=== PATIENT | male | born 1965 | race Caucasian/White ===

== ENCOUNTER → 2017-08-05 | Outpatient (CLI) | payer SELFPAY ==
[~2017-08-05] MED LIST: ACHD5005 PO; AMOX-356 PO; CEPH500C PO; CIPR500T78 PO; HYDR-757 PO; HYDR1TAB8 PO; NAPR-1071 PO; PRD20T PO; SULF-222 PO; SULF1TAB35 PO; TRAM50TA2 PO
--- NOTE | 2017-08-05 10:54 | Diagnostic Imaging Report ---
INDICATION: Back pain with chronic low back pain and bilateral lower extremity pain Multiplanar MR imaging of the thoracic spine was performed. There is moderate right convexity curvature of the thoracic spine of approximately 45 degrees centered at the T6 level. There is leftward disc bulging along the inner margin of the convexity which does result in mild to moderate neuroforaminal stenosis on the left from T6-T9. No vertebral body anomaly is identified. There is no marrow signal abnormality to suggest fracture. No paraspinous lesion is detected. Thoracic spinal cord is unremarkable in caliber and demonstrates no suspicious signal abnormality. IMPRESSION: Approximately 45 degrees right convexity thoracic spinal curvature centered at T6 with leftward bulging of thoracic disc resulting in mild to moderate left neural foraminal stenoses from T6-T9. Otherwise, no acute abnormality or vertebral anomaly is identified. Dictated by: Dictated on workstation # [id number]
--- NOTE | 2017-08-05 12:03 | Diagnostic Imaging Report ---
PROCEDURE: MRI lumbar spine. TECHNIQUE: Multiplanar, multisequence MRI of the lumbar spine was performed without contrast. INDICATION: Scoliosis. Chronic low back and bilateral lower extremity pain. COMPARISON: Lumbar spine radiographs 11/26/2015. FINDINGS: There are five lumbar type vertebral bodies. Moderate left apex lumbar curvature centered at L2-L3. Grade 1 anterolisthesis of L4 on L5. Normal bone marrow signal. No abnormal signal in the conus which terminates at L1. Normal morphology of the cauda equina. Intervertebral discs are well-preserved at L1-L4. No spinal canal or lateral recess narrowing at these levels. Facet arthropathy and the lateral curvature does result in moderate to advanced left neural foraminal narrowing at L3-L4. At L4-L5, the anterolisthesis, ligamentous hypertrophy and facet arthropathy results in moderate to advanced spinal canal and bilateral lateral recess narrowing. There is also advanced bilateral neural foraminal narrowing. There is increased fluid within the facet joints at this level. At L5-S1, broad-based disc bulge results in only mild spinal canal and bilateral lateral recess narrowing. Disc space height loss and facet arthropathy results in moderate to advanced bilateral neural foraminal narrowing. The visualized paravertebral soft tissues are unremarkable. IMPRESSION: 1. Spondylotic changes result in moderate to advanced spinal canal narrowing at L4-L5. No other high-grade spinal canal narrowing in the lumbar spine. 2. Scoliosis and facet arthropathy result in scattered moderate to advanced neural foraminal narrowing detailed above. 3. Increased fluid within the facet joints at L4-L5 may be an additional local pain generator. Dictated by: Dictated on workstation # [id number]
== END ==
LOC: RAD 09:22
PROVIDERS: ATTEND Nurse Practitioner Family
DX: M48.061 Spinal stenosis, lumbar region without neurogenic claudication (principal); M48.04 Spinal stenosis, thoracic region; M41.86 Other forms of scoliosis, lumbar region; M46.86 Other specified inflammatory spondylopathies, lumbar region; M43.16 Spondylolisthesis, lumbar region; M51.24 Other intervertebral disc displacement, thoracic region; M51.37 Other intervertebral disc degeneration, lumbosacral region
CPT/HCPCS: 72146; 72148

== ENCOUNTER 2017-11-24 17:45 | Emergency (ER) | payer SELFPAY ==
[~2017-11-24] VITALS: Ht 167.6 cm; Wt 77.1 kg
[2017-11-24] MEDS ORDERED: KETOROLAC 30 MG/ML VIAL IM ONE (20:00)
[2017-11-24] MEDS ORDERED: RX-NEO/POLYB/HC OTIC (CORTISPORIN) SUSP 10 ML BTL OT STA (20:00)
[2017-11-24] MEDS ORDERED: AMOXICILLIN 500 MG (POLYMOX) CAP PO STA (20:00)
[2017-11-24] MEDS ORDERED: AMOX500T2 PO (20:06)
--- NOTE | 2017-11-24 20:06 | ED EENT ---
History of Present Illness General Chief Complaint: Ear Problems Stated Complaint: R EAR PAIN Nursing Triage Note: States that rt ear has been draining red, muffled sound, and pain for the last week. No known injury Source: patient Exam Limitations: no limitations History of Present Illness Date Seen by Provider: Nov 24, 2017 Time Seen by Provider: 19:50 Initial Comments This 52-year-old gentleman presents to the emergency room with complaints of right ear pain. It is throbbing. It feels plugged and has been draining 1 week. He denies any fever. His primary care provider is Edwin Vance at [facility]. He has a history of tympanic membrane repair as a child. Allergies and Home Medications Allergies Coded Allergies: No Known Drug Allergies (Unverified , 11/24/17) Home Medications Amoxicillin 500 Mg Tablet, 1,000 MG PO BID Prescribed by: REBEKA BARCENAS on 11/24/172005 Cephalexin Monohydrate 500 Mg Capsule, 1 EACH PO BID Prescribed by: XIN PARK on 08/30/141829 Ciprofloxacin HCl 500 Mg Tablet, 500 MG PO BID Prescribed by: XIN PARK on 08/30/141829 Hydrocodone Bit/Acetaminophen 1 Each Tablet, 1 EA PO Q6H PRN for MILD PAIN Prescribed by: XIN PARK on 08/30/141829 Hydrocodone Bit/Acetaminophen 1 Each Tablet, 1 EACH PO Q4H PRN for PAIN Prescribed by: LUIS FRANCIS on 03/13/151716 Naproxen 500 Mg Tablet, 500 MG PO Q12H Prescribed by: LUIS FRANCIS on 04/04/15 150 Prednisone 20 Mg Tab, 40 MG PO DAILY Prescribed by: LUIS FRANCIS on 04/04/15 150 Sulfamethoxazole/Trimethoprim 1 Each Tablet, 1 EACH PO BID Prescribed by: LUIS FRANCIS on 03/13/151716 Tramadol HCl 50 Mg Tablet, 50 MG PO Q4H PRN for PAIN Prescribed by: LUIS FRANCIS on 04/04/15 150 Patient Home Medication List Home Medication List Reviewed: Yes Review of Systems Constitutional: no symptoms reported Eyes: No Symptoms Reported Ears: See HPI Nose: no symptoms reported Mouth: no symptoms reported Throat: no symptoms reported Respiratory: no symptoms reported Cardiovascular: no symptoms reported Gastrointestinal: no symptoms reported Musculoskeletal: no symptoms reported Skin: no symptoms reported Neurological: No Symptoms Reported Past Nampsmr-Cihlit-Pziwzm Hx Patient Social History Alcohol Use: Rarely Uses Recreational Drug Use: Yes Smoking Status: Current Everyday Smoker 2nd Hand Smoke Exposure: No Recent Foreign Travel: No Contact w/Someone Who Travel: No Recent Infectious Disease Expo: No Immunizations Up To Date Tetanus Booster (TDap): Less than 5yrs Past Medical History Surgeries: Yes Ear Surgery, Orthopedic Respiratory: No Cardiac: No Neurological: No Genitourinary: No Gastrointestinal: No Musculoskeletal: Yes Scoliosis, Chronic Back Pain Endocrine: No HEENT: No Cancer: No Psychosocial: No Integumentary: No Blood Disorders: No Family Medical History No Pertinent Family Hx Physical Exam Vital Signs Vital Signs - First Documented 11/24/17 11/24/17 18:39 20:24 Temp 97.8 Pulse 76 Resp 14 B/P (MAP) 131/76 (94) Pulse Ox 95 O2 Delivery Room Air General Appearance: WD/WN, no apparent distress Ears: right ear other (There is purulent drainage in the ear canal and loss of normal landmarks of the tympanic membrane. Ear is painful. Findings suspicious for perforation. There appears to be purulent effusion behind the tympanic membrane. 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 He was dispensed a Cortisporin take-home bottle as well as. Toradol was given for management of pain. He was strongly advised to follow-up with the ENT specialist. Departure Impression Primary Impression: Otitis media of right ear with rupture of tympanic membrane Additional Impression: Left serous otitis media Qualified Codes: H65.02 - Acute serous otitis media, left ear Disposition: HOME, SELF-CARE Condition: Improved Departure-Patient Inst. Decision time for Depature: 20:00 Referrals: [facility] JONEL (PCP) Primary Care Physician EDWIN VANCE (Family) Primary Care Physician Patient Instructions: Ear Infections (Otitis Media) (DC), How to Use Ear Drops Add. Discharge Instructions: Complete the entire course of antibiotics as prescribed. Please call the clinic tomorrow to schedule an appointment for next week to have your ears reexamined. For pain you may take ibuprofen up to 600 mg every 6 hours as needed. Add Tylenol (acetaminophen) up to 1000 mg every 6 hours as needed for additional pain relief. Return to care if symptoms are worsening. It may take several days or weeks to clear up the infection. Referral to an ear, nose and throat specialist may be necessary at your follow-up appointment. All discharge instructions reviewed with patient and/or family. Voiced understanding. Scripts Amoxicillin (Amoxicillin) 500 Mg Tablet 1000 MG PO BID, #40 TAB Prov: REBEKA LLOYD MD 11/24/17 Copy Copies To 1: SAM VICK JOSHUA T MD Nov 24, 2017 20:06
--- OUTSIDE RECORDS SUMMARY | 2017-11-24 20:12 | XMS REPORT ---
Author Author BJ VANCE Organization [employer] Address Unknown Phone Unavailable Care Team Providers Care Real Estate Acquisition Analyst Name Role Phone BJ VANCE CP Unavailable Allergies No Known Allergies Problems Problem Type Condition Code Onset Dates Condition Status Problem Scoliosis, unspecified scoliosis type, unspecified spinal region M41.9 Active Problem Chronic right-sided low back pain with right-sided sciatica M54.41 Active Problem Dysthymia F34.1 Active Assessment Scoliosis, unspecified scoliosis type, unspecified spinal region M41.9 Active Medications Medication Code System Code Instructions Start Date End Date Status Dosage Fluoxetine HCl [facility][NOTE 3] [address]-86 20 mg Orally Once a day Feb 18, 2016 1 capsule in the morning Baclofen [facility][NOTE 3] [address]-10 10 mg Orally 2 times a day Feb 18, 2016 1 tablet with food or milk Diclofenac Potassium [facility][NOTE 3] [address]-91 50 mg Orally 3 times a day Feb 18, 2016 1 tablet Results No Known Results Summary Purpose [employer] Submission
--- OUTSIDE RECORDS SUMMARY | 2017-11-24 20:12 | XMS REPORT ---
Author Author BJ VANCE [facility] Address [address] [place] [address] Care Team Providers Care Area Director Of Home Health Sales Name Role Phone BJ VANCE Unavailable PROBLEMS Type Condition ICD9-CM Code TIS63-DE Code Onset Dates Condition Status SNOMED Code Problem Dysthymia F34.1 Active 55038571 Problem Scoliosis, unspecified scoliosis type, unspecified spinal region M41.9 Active 074700293 Problem Chronic right-sided low back pain with right-sided sciatica M54.41 Active 251209607 ALLERGIES No Information SOCIAL HISTORY Never Assessed PLAN OF CARE VITAL SIGNS MEDICATIONS Unknown Medications RESULTS No Results PROCEDURES No Known procedures IMMUNIZATIONS No Known Immunizations MEDICAL (GENERAL) HISTORY Type Description Date Medical History scoliosis Medical History Dysthymia Medical History Chronic right-sided low back pain with right-sided sciatica
--- OUTSIDE RECORDS SUMMARY | 2017-11-24 20:12 | XMS REPORT ---
Author Author BJ VANCE [facility] Address [address] [place] [address] Care Team Providers Care Paper Winder Name Role Phone BJ VANCE Unavailable PROBLEMS Type Condition ICD9-CM Code APO98-IP Code Onset Dates Condition Status SNOMED Code Problem DDD (degenerative disc disease), lumbosacral M51.37 Active 60766337 Problem Dysthymia F34.1 Active 79342066 Problem Scoliosis, unspecified scoliosis type, unspecified spinal region M41.9 Active 695038552 Problem Chronic right-sided low back pain with right-sided sciatica M54.41 Active 849183453 ALLERGIES No Information ENCOUNTERS Encounter Location Date Diagnosis [place] [id number] [place] [address] [id number] October, DDD (degenerative disc disease), lumbosacral M51.37 and Chronic right- sided low back pain with right-sided sciatica M54.[address] [id number] October, [address] [id number] Sep, DDD (degenerative disc disease), lumbosacral M51.37 [place] [id number] [place] [address] [id number] Aug, DDD (degenerative disc disease), lumbosacral M51.37 [address] [place] [address] [id number] Aug, DDD (degenerative disc disease), lumbosacral M51.37 [facility] [address] [address] Jul, 2017 DDD (degenerative disc disease), lumbosacral M51.37 and Scoliosis, unspecified scoliosis type, unspecified spinal region M41.[address] [id number] [id number] Jul, DDD (degenerative disc disease), lumbosacral M51.37 [facility] [place] [id number] [place] [address] [id number] Jun, DDD (degenerative disc disease), lumbosacral M51.37 [facility] [place] [id number] [place] [address] [id number] Apr, DDD (degenerative disc disease), lumbosacral M51.37 [facility] [place] [id number], [place] [id number] Apr, DDD (degenerative disc disease), lumbosacral M51.37 and Acute pain of right shoulder M25.511 [facility] [address] [facility] [id number] [id number] Mar, Chronic right-sided low back pain with right-sided sciatica M54.41 [facility] [address] [id number] [id number] Mar, Scoliosis, unspecified scoliosis type, unspecified spinal region M41.9 and Chronic right-sided low back pain with right-sided sciatica M54.41 [facility] [id number] [place] [address] [id number] Mar, Scoliosis, unspecified scoliosis type, unspecified spinal region M41.9 and Chronic right-sided low back pain with right-sided sciatica M54.41 [facility] [id number], [place] [id number] Feb, Chronic right-sided low back pain with right-sided sciatica M54.41 [facility] [address] [facility] [id number], [place] [id number] Feb, Chronic right-sided low back pain with right-sided sciatica M54.41 [facility] [id number] [place] [address] [id number] Jan, Chronic right-sided low back pain with right-sided sciatica M54.41 [facility] [id number], [place] [id number] Dec, Chronic right-sided low back pain with right-sided sciatica M54.41 [facility] [address] [id number] [place] [id number] Dec, Chronic right-sided low back pain with right-sided sciatica M54.41 [facility] [address] [id number] [place] [id number] Nov, Chronic right-sided low back pain with right-sided sciatica M54.41 [facility] [address] [id number] [place] [id number] October, Chronic right-sided low back pain with right-sided sciatica M54.41 [facility] [address] [id number] [place] [id number] October, [facility] [address] [id number] [place] [id number] Sep, Chronic right-sided low back pain with right-sided sciatica M54.41 [facility] [id number] [place] [address] [id number] Aug, Chronic right-sided low back pain with right-sided sciatica M54.41 [facility] [address] [id number] [place] [id number] May, Scoliosis, unspecified scoliosis type, unspecified spinal region M41.9 [facility] [address] [id number], [place] [id number] Apr, [facility] [id number] [place] [address] [id number] Mar, Chronic right-sided low back pain with right-sided sciatica M54.41 [facility] [address] [id number], [place] [id number] Mar, Scoliosis, unspecified scoliosis type, unspecified spinal region M41.9 [facility] [address] [id number] [place] [id number] Feb, Chronic right-sided low back pain with right-sided sciatica M54.41 ; Scoliosis, unspecified scoliosis type, unspecified spinal region M41.9 and Dysthymia F34.1 [facility] [address] [id number] [place] [id number] Sep, Scoliosis, unspecified scoliosis type, unspecified spinal region M41.9 and Chronic right-sided low back pain with right-sided sciatica M54.41 [facility] [address] [facility] [id number] [place] [address] Nov, [facility] [address] [place] [id number] [address] Nov, [place] [address] [address] Nov, [place] [address] [facility] [id number] [place] [address] Nov, IMMUNIZATIONS No Known Immunizations SOCIAL HISTORY Never Assessed REASON FOR VISIT Controlled Med Refill PLAN OF CARE VITAL SIGNS MEDICATIONS Medication Instructions Dosage Frequency Start Date End Date Duration Status Hydrocodone-Acetaminophen 5-325 MG Orally 3 times a day 1 tablet as needed for pain 8h Apr, 0 days Active RESULTS No Results PROCEDURES No Known procedures INSTRUCTIONS MEDICATIONS ADMINISTERED No Known Medications MEDICAL (GENERAL) HISTORY Type Description Date Medical History scoliosis Medical History Dysthymia Medical History Chronic right-sided low back pain with right-sided sciatica
--- OUTSIDE RECORDS SUMMARY | 2017-11-24 20:12 | XMS REPORT ---
Author Author BJ VANCE [facility] Address [address] [place] [address] Care Team Providers Care Hide Inspector And Sorter Name Role Phone BJ VANCE Unavailable PROBLEMS Type Condition ICD9-CM Code OCN13-KB Code Onset Dates Condition Status SNOMED Code Problem DDD (degenerative disc disease), lumbosacral M51.37 Active 56851091 Problem Dysthymia F34.1 Active 27729425 Problem Scoliosis, unspecified scoliosis type, unspecified spinal region M41.9 Active 780755841 Problem Chronic right-sided low back pain with right-sided sciatica M54.41 Active 724916366 ALLERGIES No Known Allergies ENCOUNTERS Encounter Location Date Diagnosis [place] [id number] [place] [address] [id number] Aug, DDD (degenerative disc disease), lumbosacral M51.37 [place] [id number] [place] [address] [id number] Aug, DDD (degenerative disc disease), lumbosacral M51.37 [facility] [address] [address] Jul, DDD (degenerative disc disease), lumbosacral M51.37 and Scoliosis, unspecified scoliosis type, unspecified spinal region M41.[address] [place] [address] [id number] Jul, DDD (degenerative disc disease), lumbosacral M51.37 [place] [id number] [place] [address] [id number] Jun, DDD (degenerative disc disease), lumbosacral M51.37 [place] [id number] [place] [address] [id number] Apr, DDD (degenerative disc disease), lumbosacral M51.37 [place] [id number] [id number] Apr, DDD (degenerative disc disease), lumbosacral M51.37 and Acute pain of right shoulder M25.511 [facility] [place] [address] [id number][place] [id number] Mar, Chronic right-sided low back pain with right-sided sciatica M54.41 [facility] [address] [id number][place] [id number] Mar, Scoliosis, unspecified scoliosis type, unspecified spinal region M41.9 and Chronic right-sided low back pain with right-sided sciatica M54.41 [facility] [id number] [place] [address] [id number] Mar, Scoliosis, unspecified scoliosis type, unspecified spinal region M41.9 and Chronic right-sided low back pain with right-sided sciatica M54.41 [facility] [id number] [place] [address] [id number] Feb, Chronic right-sided low back pain with right-sided sciatica M54.41 [facility] [id number] [place] [address] [id number] Feb, Chronic right-sided low back pain with right-sided sciatica M54.41 [facility] [id number] [place] [address] [id number] Jan, Chronic right-sided low back pain with right-sided sciatica M54.41 [facility] [id number] [place] [address] [id number] Dec, Chronic right-sided low back pain with right-sided sciatica M54.41 [facility] [address] [id number], [place] [id number] Dec, Chronic right-sided low back pain with right-sided sciatica M54.41 [facility] [id number] [place] [address] [id number] Nov, Chronic right-sided low back pain with right-sided sciatica M54.41 [facility] [id number] [place] [address] [id number] October, Chronic right-sided low back pain with right-sided sciatica M54.41 [facility] [address] [id number][place] [id number] October, [facility] [id number] [place] [address] [id number] Sep, Chronic right-sided low back pain with right-sided sciatica M54.41 [facility] [place] [id number] [place] [address] [id number] Aug, Chronic right-sided low back pain with right-sided sciatica M54.41 [facility] [place] [address] [id number], [place] [id number] May, Scoliosis, unspecified scoliosis type, unspecified spinal region M41.9 [facility] [place] [id number] [place] [address] [id number] Apr, [facility] [place] [id number] [place] [address] [id number] Mar, Chronic right-sided low back pain with right-sided sciatica M54.41 [facility] [place] [address] [id number], [place] [id number] Mar, Scoliosis, unspecified scoliosis type, unspecified spinal region M41.9 [facility] [place] [id number] [place] [address] [id number] Feb, Chronic right-sided low back pain with right-sided sciatica M54.41 ; Scoliosis, unspecified scoliosis type, unspecified spinal region M41.9 and Dysthymia F34.1 [facility] [id number], [place] [id number] Sep, Scoliosis, unspecified scoliosis type, unspecified spinal region M41.9 and Chronic right-sided low back pain with right-sided sciatica M54.41 [facility] [address] [id number] [place] [phone] Nov, [facility] [id number] [place] [address] Nov, [facility] [address] [place] [id number] [place] [address], [place] [address] Nov, [facility] [address] [facility] [id number] [place] [address] Nov, IMMUNIZATIONS No Known Immunizations SOCIAL HISTORY Never Assessed REASON FOR VISIT 2 month follow up on chronic pain management--doing about the same. [place] PLAN OF CARE Activity Details Follow Up 3 Months Reason:back pain VITAL SIGNS Height 65 in 2016-12-08 Weight 187 lbs 2016-12-08 Temperature 97.2 degrees Fahrenheit 2016-12-08 Heart Rate 72 bpm 2016-12-08 Respiratory Rate 16 2016-12-08 BMI 31.12 kg/m2 2016-12-08 Blood pressure systolic 110 mmHg 2016-12-08 Blood pressure diastolic 68 mmHg 2016-12-08 MEDICATIONS Medication Instructions Dosage Frequency Start Date End Date Duration Status Baclofen 10 mg Orally 2 times a day 1 tablet with food or milk 12h Feb, Active Gabapentin 600 MG Orally 2 times a day 1 capsule 12h Feb, Active Diclofenac Potassium 50 mg Orally 3 times a day 1 tablet 8h Feb, Active Hydrocodone-Acetaminophen 5-325 MG Orally twice a day 1 tablet as needed for pain 12h Aug, Nov, 0 days Active RESULTS No Results PROCEDURES No Known procedures INSTRUCTIONS MEDICATIONS ADMINISTERED No Known Medications MEDICAL (GENERAL) HISTORY Type Description Date Medical History scoliosis Medical History Dysthymia Medical History Chronic right-sided low back pain with right-sided sciatica
--- OUTSIDE RECORDS SUMMARY | 2017-11-24 20:12 | XMS REPORT ---
Author Author JOSH MACHADO Organization [facility] Address [address] [place] [address] Care Team Providers Care Supervisor Line Department Name Role Phone JOSH MACHADO Unavailable PROBLEMS Type Condition ICD9-CM Code [id number] Code Onset Dates Condition Status SNOMED Code Problem DDD (degenerative disc disease), lumbosacral M51.37 Active 22947715 Problem Dysthymia F34.1 Active 20133384 Problem Scoliosis, unspecified scoliosis type, unspecified spinal region M41.9 Active 930648075 Problem Chronic right-sided low back pain with right-sided sciatica M54.41 Active 305913908 ALLERGIES No Information ENCOUNTERS Encounter Location Date Diagnosis [facility] [id number] [place] [address] [id number] Sep, DDD (degenerative disc disease), lumbosacral M51.37 [id number] [place] [address] [id number] Aug, DDD (degenerative disc disease), lumbosacral M51.37 [address] [place] [address] [id number] Aug, DDD (degenerative disc disease), lumbosacral M51.37 [facility] [address] [place] [address] [id number]- [address] Jul, DDD (degenerative disc disease), lumbosacral M51.37 and Scoliosis, unspecified scoliosis type, unspecified spinal region M41.9 [id number] [place] [address] [id number] Jul, DDD (degenerative disc disease), lumbosacral M51.37 [address] [place] [address] [id number] Jun, DDD (degenerative disc disease), lumbosacral M51.37 [facility] [place] [address] [id number] [phone] Apr, DDD (degenerative disc disease), lumbosacral M51.37 [facility] [place] [id number] [place] [address] [id number] Apr, DDD (degenerative disc disease), lumbosacral M51.37 and Acute pain of right shoulder M25.511 [facility] [place] [id number] [place] [address] [id number] Mar, Chronic right-sided low back pain with right-sided sciatica M54.41 [facility] [address] [id number][place] [id number] Mar, Scoliosis, unspecified scoliosis type, unspecified spinal region M41.9 and Chronic right-sided low back pain with right-sided sciatica M54.41 [facility] [place] [id number] [place] [address] [id number] Mar, Scoliosis, unspecified scoliosis type, unspecified spinal region M41.9 and Chronic right-sided low back pain with right-sided sciatica M54.41 [facility] [place] [address] [id number] [place] [address] [id number] Feb, Chronic right-sided low back pain with right-sided sciatica M54.41 [facility] [place] [id number] [place] [address] [id number] Feb, Chronic right-sided low back pain with right-sided sciatica M54.41 [facility] [place] [id number] [place] [address] [id number] Jan, Chronic right-sided low back pain with right-sided sciatica M54.41 [facility] [place] [id number] [place] [address] [id number] Dec, Chronic right-sided low back pain with right-sided sciatica M54.41 [facility] [place] [id number] [place] [address] [id number] Dec, Chronic right-sided low back pain with right-sided sciatica M54.41 [facility] [place] [address] [id number][place] [id number] Nov, Chronic right-sided low back pain with right-sided sciatica M54.41 [facility] [address] [id number][place] [phone] October, Chronic right-sided low back pain with right-sided sciatica M54.41 [facility] [address] [id number], [place] [phone] October, [facility] [id number] [place] [address] [id number] Sep, Chronic right-sided low back pain with right-sided sciatica M54.41 [facility] [place] [id number] [place] [address] [id number] Aug, Chronic right-sided low back pain with right-sided sciatica M54.41 [facility] [place] [id number] [place] [address] [id number] May, Scoliosis, unspecified scoliosis type, unspecified spinal region M41.9 [facility] [place] [id number], [place] [id number] Apr, [facility] [place] [id number] [place] [address] [id number] Mar, Chronic right-sided low back pain with right-sided sciatica M54.41 [facility] [place] [id number] [place] [address] [id number] Mar, Scoliosis, unspecified scoliosis type, unspecified spinal region M41.9 [facility] [place] [id number][place] [id number] Feb, Chronic right-sided low back pain with right-sided sciatica M54.41 ; Scoliosis, unspecified scoliosis type, unspecified spinal region M41.9 and Dysthymia F34.1 [facility] [place] [id number] [place] [address] [id number] Sep, Scoliosis, unspecified scoliosis type, unspecified spinal region M41.9 and Chronic right-sided low back pain with right-sided sciatica M54.41 [facility] [address] [phone] Nov, [facility] [address] [facility] [id number] [place] [address] Nov, [facility] [address] [facility] [id number] [place] [address] Nov, [facility] [address] [facility] [id number] [place] [address] Nov, IMMUNIZATIONS No Known Immunizations SOCIAL HISTORY Never Assessed REASON FOR VISIT Reprint of script PLAN OF CARE VITAL SIGNS MEDICATIONS Medication Instructions Dosage Frequency Start Date End Date Duration Status Hydrocodone-Acetaminophen 5-325 MG Orally 3 times a day 1 tablet as needed for pain 8h Aug, 30 days Active RESULTS No Results PROCEDURES No Known procedures INSTRUCTIONS MEDICATIONS ADMINISTERED No Known Medications MEDICAL (GENERAL) HISTORY Type Description Date Medical History scoliosis Medical History Dysthymia Medical History Chronic right-sided low back pain with right-sided sciatica
--- OUTSIDE RECORDS SUMMARY | 2017-11-24 20:12 | XMS REPORT ---
Author Author BJ VANCE [facility] Address [address] [place] [address] Care Team Providers Care Wrapping Clerk Name Role Phone BJ VANCE Unavailable PROBLEMS Type Condition ICD9-CM Code EOG87-VR Code Onset Dates Condition Status SNOMED Code Problem Dysthymia F34.1 Active 34799895 Problem Scoliosis, unspecified scoliosis type, unspecified spinal region M41.9 Active 843900918 Problem Chronic right-sided low back pain with right-sided sciatica M54.41 Active 112353767 Assessment Chronic right-sided low back pain with right-sided sciatica M54.41 Feb, Active 54173216 ALLERGIES Substance Reaction Event Type Date Status N.K.D.A. Unknown Non Drug Allergy Feb, Unknown SOCIAL HISTORY No smoking Hx information available PLAN OF CARE VITAL SIGNS Height 65 in 2016-02-18 Weight 180 lbs 2016-02-18 Heart Rate 72 bpm 2016-02-18 Respiratory Rate 18 2016-02-18 BMI 29.95 kg/m2 2016-02-18 Blood pressure systolic 128 mmHg 2016-02-18 Blood pressure diastolic 70 mmHg 2016-02-18 MEDICATIONS Medication Instructions Dosage Frequency Start Date End Date Duration Status Baclofen 10 mg Orally 2 times a day 1 tablet with food or milk 12h Feb, Active Gabapentin 300 MG Orally 1 capsule at bedtime for 5 days then increase to 1 capsule BID, then increase to 1 capsule TID 1 capsule Feb, Active Diclofenac Potassium 50 mg Orally 3 times a day 1 tablet 8h Feb, Active Fluoxetine HCl 20 mg Orally Once a day 1 capsule in the morning 24h Feb Active RESULTS No Results PROCEDURES Procedure Date Ordered Related Diagnosis Body Site Office Visit, Est Pt., Level 3 Feb 18, 2016 IMMUNIZATIONS No Known Immunizations
--- OUTSIDE RECORDS SUMMARY | 2017-11-24 20:12 | XMS REPORT ---
Author Author BJ VANCE [facility] Address [address] [place] [address] Care Team Providers Care Shellfish Checker Name Role Phone BJ VANCE Unavailable PROBLEMS Type Condition ICD9-CM Code UFC87-OB Code Onset Dates Condition Status SNOMED Code Problem DDD (degenerative disc disease), lumbosacral M51.37 Active 23033262 Problem Dysthymia F34.1 Active 19090410 Problem Scoliosis, unspecified scoliosis type, unspecified spinal region M41.9 Active 838950879 Problem Chronic right-sided low back pain with right-sided sciatica M54.41 Active 509118635 ALLERGIES No Information ENCOUNTERS Encounter Location Date Diagnosis [id number] [place] [address] [id number] Sep, DDD (degenerative disc disease), lumbosacral M51.37 [id number] [place] [address] [id number] Aug, DDD (degenerative disc disease), lumbosacral M51.37 [id number] [place] [address] [id number] Aug, DDD (degenerative disc disease), lumbosacral M51.37 [facility] [id number] [place] [address] [id number] [address] Jul, DDD (degenerative disc disease), lumbosacral M51.37 and Scoliosis, unspecified scoliosis type, unspecified spinal region M41.[address] [id number] Jul, DDD (degenerative disc disease), lumbosacral M51.37 [address] [place] [address] [id number] Jun, DDD (degenerative disc disease), lumbosacral M51.37 [address] [id number] Apr, DDD (degenerative disc disease), lumbosacral M51.37 [facility] [place] [id number] [place] [address] [id number] Apr, DDD (degenerative disc disease), lumbosacral M51.37 and Acute pain of right shoulder M25.511 [facility] [address] [id number] [place] [id number] Mar, Chronic right-sided low back pain with right-sided sciatica M54.41 [facility] [address] [facility] [id number][place] [id number] Mar, Scoliosis, unspecified scoliosis type, unspecified spinal region M41.9 and Chronic right-sided low back pain with right-sided sciatica M54.41 [facility] [address] [id number] [place] [id number] Mar, Scoliosis, unspecified scoliosis type, unspecified spinal region M41.9 and Chronic right-sided low back pain with right-sided sciatica M54.41 [facility] [id number] [place] [address] [id number] Feb, Chronic right-sided low back pain with right-sided sciatica M54.41 [facility] [id number] [place] [address] [id number] Feb, Chronic right-sided low back pain with right-sided sciatica M54.41 [facility] [id number] [place] [address] [id number] Jan, Chronic right-sided low back pain with right-sided sciatica M54.41 [facility] [address] [id number] [place] [id number] Dec, Chronic right-sided low back pain with right-sided sciatica M54.41 [facility] [id number] [place] [address] [id number] Dec, Chronic right-sided low back pain with right-sided sciatica M54.41 [facility] [id number] [place] [address] [id number] Nov, Chronic right-sided low back pain with right-sided sciatica M54.41 [facility] [address] [id number] [place] [id number] October, Chronic right-sided low back pain with right-sided sciatica M54.41 [facility] [address] [id number] [place] [id number] October, [facility] [address] [id number] [place] [phone] Sep, Chronic right-sided low back pain with right-sided sciatica M54.41 [facility] [id number] [place] [address] [id number] Aug, Chronic right-sided low back pain with right-sided sciatica M54.41 [facility] [id number] [place] [address] [id number] May, Scoliosis, unspecified scoliosis type, unspecified spinal region M41.9 [facility] [place] [id number] [place] [address] [id number] Apr, [facility] [id number] [place] [address] [id number] Mar, Chronic right-sided low back pain with right-sided sciatica M54.41 [facility] [id number] [place] [address] [id number] Mar, Scoliosis, unspecified scoliosis type, unspecified spinal region M41.9 [facility] [place] [id number] [place] [address] [id number] Feb, Chronic right-sided low back pain with right-sided sciatica M54.41 ; Scoliosis, unspecified scoliosis type, unspecified spinal region M41.9 and Dysthymia F34.1 [facility] [place] [id number] [place] [address] [id number] Sep, Scoliosis, unspecified scoliosis type, unspecified spinal region M41.9 and Chronic right-sided low back pain with right-sided sciatica M54.41 [facility] [address]65100[place] [address] Nov, [facility] [address] [facility] [id number] [place] [address] Nov, [facility] [address] [facility] [id number] [place] [address] Nov, [facility] [address] [facility] [id number] [place] [address] Nov, IMMUNIZATIONS No Known Immunizations SOCIAL HISTORY Never Assessed REASON FOR VISIT RX-Hydrocodone refill PLAN OF CARE VITAL SIGNS MEDICATIONS Medication Instructions Dosage Frequency Start Date End Date Duration Status Hydrocodone-Acetaminophen 5-325 MG Orally 3 times a day 1 tablet as needed for pain 8h Aug, Active RESULTS No Results PROCEDURES No Known procedures INSTRUCTIONS MEDICATIONS ADMINISTERED No Known Medications MEDICAL (GENERAL) HISTORY Type Description Date Medical History scoliosis Medical History Dysthymia Medical History Chronic right-sided low back pain with right-sided sciatica
--- OUTSIDE RECORDS SUMMARY | 2017-11-24 20:13 | XMS REPORT | Continuity of Care Document ---
Author Author [facility] Address Unknown Phone Unavailable Allergies Active Description Code Type Severity Reaction Onset Reported/Identified Relationship to Patient Clinical Status Yes No Known Drug Allergies [id number] Drug Allergy Unknown N/A 12/22/2013 Medications There is no data. Problems Date Dx Coded Attending Type Code Diagnosis Diagnosed By 12/22/2013 XIN PARK APRN Ot 883.0 OPEN WOUND OF FINGER 12/22/2013 XIN PARK APRN Ot E920.8 ACC-CUTTING INSTRUM NEC 12/24/2013 XIN PARK APRN Ot 729.99 OTHER DISORDERS OF SOFT TISSUE 01/05/2014 PAUL COOPER DO Ot V58.32 ENCOUNTER FOR REMOVAL OF SUTURES 08/30/2014 XIN PARK APRN Ot 891.0 OPEN WND KNEE/LEG/ANKLE 08/30/2014 XIN PARK APRN Ot E000.8 OTHER EXTERNAL CAUSE STATUS 08/30/2014 XIN PARK APRN Ot E919.4 WOODWORKING MACHINE ACC 03/07/2015 LOLI BAUTISTA DO Ot 873.0 OPEN WOUND OF SCALP 03/07/2015 LOLI BAUTISTA DO Ot 881.20 OPEN WND FOREARM W TENDN 03/07/2015 LOLI BAUTISTA DO Ot E000.8 OTHER EXTERNAL CAUSE STATUS 03/07/2015 LOLI BAUTISTA DO Ot E849.[address] NEC 03/07/2015 LOLI BAUTISTA DO Ot E906.0 DOG BITE 03/07/2015 LOLI BAUTISTA DO Ot V04.5 VACCIN FOR RABIES 03/07/2015 LOLI BAUTISTA DO Ot V06.1 [id number], COMBINED [ 03/13/2015 LUIS BOWIE Ot L03.114 CELLULITIS OF LEFT UPPER LIMB 03/13/2015 LUIS BOWIE Ot S51.052D OPEN BITE, LEFT ELBOW, SUBSEQUENT ENCOUN 03/13/2015 LUIS BOWIE Ot W54.0XXD BITTEN BY DOG, SUBSEQUENT ENCOUNTER 04/04/2015 LUIS BOWIE Ot M77.9 ENTHESOPATHY, UNSPECIFIED 04/04/2015 LUIS BOWIE Ot M79.632 PAIN IN LEFT FOREARM 11/28/2015 PEG GUTIÉRREZ MD (DDU) Ot Z02.71 ENCOUNTER FOR DISABILITY DETERMINATION 11/28/2015 PEG GUTIÉRREZ MD (DDU) Ot Z02.71 ENCOUNTER FOR DISABILITY DETERMINATION 08/05/2017 PEG GUTIÉRREZ MD (DDU) Ot Z02.71 ENCOUNTER FOR DISABILITY DETERMINATION 08/08/2017 VANCE, BJ R CFNP Ot M41.86 OTHER FORMS OF SCOLIOSIS, LUMBAR REGION 08/08/2017 VANCE, BJ R CFNP Ot M43.16 SPONDYLOLISTHESIS, LUMBAR REGION 08/08/2017 VANCE, BJ R CFNP Ot M46.86 OTHER SPECIFIED INFLAMMATORY SPONDYLOPAT 08/08/2017 VANCE, BJ R CFNP Ot M48.04 SPINAL STENOSIS, THORACIC REGION 08/08/2017 VANCE, BJ R CFNP Ot M48.061 SPINAL STENOSIS, LUMBAR REGION WITHOUT N 08/08/2017 VANCE, BJ R CFNP Ot M51.24 OTHER INTERVERTEBRAL DISC DISPLACEMENT, 08/08/2017 VANCE, BJ R CFNP Ot M51.37 OTHER INTERVERTEBRAL DISC DEGENERATION, 09/22/2017 VANCE, BJ R CFNP Ot M41.86 OTHER FORMS OF SCOLIOSIS, LUMBAR REGION 09/22/2017 VANCE, BJ R CFNP Ot M43.16 SPONDYLOLISTHESIS, LUMBAR REGION 09/22/2017 VANCE, BJ R CFNP Ot M46.86 OTHER SPECIFIED INFLAMMATORY SPONDYLOPAT 09/22/2017 VANCE, BJ R CFNP Ot M48.04 SPINAL STENOSIS, THORACIC REGION 09/22/2017 VANCE, BJ R CFNP Ot M48.061 SPINAL STENOSIS, LUMBAR REGION WITHOUT N 09/22/2017 VANCE, BJ R CFNP Ot M51.24 OTHER INTERVERTEBRAL DISC DISPLACEMENT, 09/22/2017 VANCE, BJ R CFNP Ot M51.37 OTHER INTERVERTEBRAL DISC DEGENERATION, Procedures There is no data. Results There is no data. Encounters ACCT No. Visit Date/Time Discharge Status Pt. Type Provider Facility Loc./Unit Complaint [id number] 10/13/2017 15:00:00 10/13/2017 23:59:59 CLS Outpatient VANCEBJ DANIELS APRN [facility] [place] [id number] 08/05/2017 10:15:00 08/05/2017 23:59:59 CLS Preadmit VANCEBJ DANIELS CFNP [facility] M51.37 DDD [id number] 08/05/2017 09:22:00 08/05/2017 23:59:59 CLS Outpatient VANCEBJ DANIELS [facility] DDD [id number] 11/26/2015 13:59:00 11/26/2015 23:59:59 CLS Outpatient PEG GUTIÉRREZ MD (DDU) [facility] BACK PAIN,PAIN IN LEGS [id number] 04/04/2015 13:48:00 04/04/2015 15:20:00 DIS Emergency LUIS BOWIE [facility] ER STAPLE REMOVAL [id number] 03/13/2015 14:15:00 03/13/2015 18:22:00 DIS Emergency LUIS BOWIE [facility] ER DOG BITES RECHECK/OUT OF MEDS [id number] 03/06/2015 23:43:00 03/07/2015 02:33:00 DIS Emergency LOLI BAUTISTA DO [facility] ER DOG BITE [id number] 08/30/2014 18:00:00 08/30/2014 19:13:00 DIS Emergency XIN PARK APRN [facility] ER R KNEE LAC [id number] 01/05/2014 14:54:00 01/05/2014 15:15:00 DIS Emergency PAUL COOPER DO [facility] ER REMOVE STITICHES [id number] 12/24/2013 19:47:00 12/24/2013 20:01:00 DIS Emergency XIN PARK APRN [facility] ER ABCESS ON NOSE [id number] 12/22/2013 19:12:00 12/22/2013 19:49:00 DIS Emergency XIN PARK APRN [facility] ER RIGHT HAND LAC
--- OUTSIDE RECORDS SUMMARY | 2017-11-24 20:13 | XMS REPORT ---
Author Author BJ VANCE Organization [employer] Address Unknown Phone Unavailable Care Team Providers Care Filling Hand Name Role Phone BJ VANCE CP Unavailable Allergies No Known Allergies Problems Problem Type Condition Code Onset Dates Condition Status Problem Scoliosis, unspecified scoliosis type, unspecified spinal region M41.9 Active Problem Chronic right-sided low back pain with right-sided sciatica M54.41 Active Problem Dysthymia F34.1 Active Medications No Known Medications Results No Known Results Summary Purpose [employer] Submission
--- OUTSIDE RECORDS SUMMARY | 2017-11-24 20:13 | XMS REPORT ---
Author Author BJ VANCE [facility] Address [address] [place] [address] Care Team Providers Care Mine Foreman Name Role Phone BJ VANCE Unavailable PROBLEMS Type Condition ICD9-CM Code FNL20-XS Code Onset Dates Condition Status SNOMED Code Problem Dysthymia F34.1 Active 65963047 Problem Scoliosis, unspecified scoliosis type, unspecified spinal region M41.9 Active 966660335 Problem Chronic right-sided low back pain with right-sided sciatica M54.41 Active 682422946 ALLERGIES No Information SOCIAL HISTORY Never Assessed PLAN OF CARE VITAL SIGNS MEDICATIONS Medication Instructions Dosage Frequency Start Date End Date Duration Status Hydrocodone-Acetaminophen 5-325 MG Orally twice a day 1 tablet as needed for pain 12h Aug, 0 days Active RESULTS No Results PROCEDURES No Known procedures IMMUNIZATIONS No Known Immunizations MEDICAL (GENERAL) HISTORY Type Description Date Medical History scoliosis Medical History Dysthymia Medical History Chronic right-sided low back pain with right-sided sciatica
--- OUTSIDE RECORDS SUMMARY | 2017-11-24 20:13 | XMS REPORT ---
Author Author BJ VANCE [facility] Address [address] [place] [address] Care Team Providers Care Mobile Architect Name Role Phone BJ VANCE Unavailable PROBLEMS Type Condition ICD9-CM Code [id number] Code Onset Dates Condition Status SNOMED Code Problem Dysthymia F34.1 Active 75578195 Problem Scoliosis, unspecified scoliosis type, unspecified spinal region M41.9 Active 623089827 Problem Chronic right-sided low back pain with right-sided sciatica M54.41 Active 732104550 ALLERGIES Substance Reaction Event Type Date Status N.K.D.A. Unknown Non Drug Allergy May, Unknown SOCIAL HISTORY No smoking Hx information available PLAN OF CARE Activity Details Follow Up 4 Weeks Reason:back pain VITAL SIGNS Height 65 in 2016-06-07 Weight 186.8 lbs 2016-06-07 Temperature 96.8 degrees Fahrenheit 2016-06-07 Heart Rate 68 bpm 2016-06-07 Respiratory Rate 18 2016-06-07 BMI 31.08 kg/m2 2016-06-07 Blood pressure systolic 116 mmHg 2016-06-07 Blood pressure diastolic 72 mmHg 2016-06-07 MEDICATIONS Medication Instructions Dosage Frequency Start Date End Date Duration Status Tramadol HCl 50 mg Orally 2 times a day must last 1 m 1 tablet as needed May, Active Gabapentin 400 MG Orally 3 times a day 1 capsule 8h Feb, Active Diclofenac Potassium 50 MG Orally 3 times a day 1 tablet 8h Feb, Active Baclofen 10 mg Orally 2 times a day 1 tablet with food or milk 12Feb, Active RESULTS No Results PROCEDURES Procedure Date Ordered Related Diagnosis Body Site Office Visit, Est Pt., Level 3 Jun 07, 2016 IMMUNIZATIONS No Known Immunizations
--- OUTSIDE RECORDS SUMMARY | 2017-11-24 20:13 | XMS REPORT ---
Author Author BJ VANCE Organization [employer] Address Unknown Phone Unavailable Care Team Providers Care Credit Processor Name Role Phone BJ VANCE CP Unavailable Allergies, Adverse Reactions, Alerts Substance Reaction Event Type N.K.D.A. Info Not Available Non Drug Allergy Problems Problem Type Condition Code Onset Dates Condition Status Problem Scoliosis, unspecified scoliosis type, unspecified spinal region M41.9 Active Problem Chronic right-sided low back pain with right-sided sciatica M54.41 Active Problem Dysthymia F34.1 Active Assessment Chronic right-sided low back pain with right-sided sciatica M54.41 Active Medications Medication Code System Code Instructions Start Date End Date Status Dosage Diclofenac Potassium [facility] [address]-66 50 MG Orally 3 times a day Feb 18, 2016 1 tablet Gabapentin [facility] [address]-11 400 MG Orally 3 times a day Feb 18, 2016 1 capsule Baclofen [facility] [address]-69 10 mg Orally 2 times a day Feb 18, 2016 1 tablet with food or milk Procedures Procedure Coding System Code Date Office Visit, Est Pt., Level 3 CPT-4 06364 Apr 12, 2016 Vital Signs Date/Time: Apr 12, 2016 Cardiac Monitoring Heart Rate 81 bpm Weight 182.4 lbs Height 65 in BMI 30.35 Index Blood Pressure Diastolic 84 mmHg Blood Pressure Systolic 128 mmHg Results No Known Results Summary Purpose [employer] Submission
[2017-11-24 20:24] VITALS: BP 141/74
== END 2017-11-24 20:26 | disposition home or self-care (01) ==
LOC: EDUNIT# 17:45 → ER 17:46
DX: H67.1 Otitis media in diseases classified elsewhere, right ear (principal); H72.91 Unspecified perforation of tympanic membrane, right ear; H65.92 Unspecified nonsuppurative otitis media, left ear; F17.200 Nicotine dependence, unspecified, uncomplicated; Z79.52 Long term (current) use of systemic steroids
CPT/HCPCS: 96372; 99284

== ENCOUNTER 2021-12-21 20:13 | Emergency (ER) | payer MEDICARE, MEDICAID ==
[~2021-12-21] VITALS: Ht 170.1 cm; Wt 63.1 kg
[~2021-12-21 20:13] MED LIST changes: +AMOX500T2 PO; -SULF1TAB35 PO; +SULF1TAB38 PO; -TRAM50TA2 PO; +TRM50T PO
[2021-12-21 21:24] LABS: BASOPHILS # (AUTO) 0.1 10^3/uL (0.0-0.1); BASOPHILS % (AUTO) 2 % (0-10); EOSINOPHILS # (AUTO) 0.4 10^3/uL (0.0-0.3); EOSINOPHILS % (AUTO) 6 % (0-10); HEMATOCRIT 41 % (40-54); HEMOGLOBIN 13.8 g/dL (13.3-17.7); LYMPHOCYTES # (AUTO) 2.3 10^3/uL (1.0-4.0); LYMPHOCYTES % (AUTO) 34 % (12-44); MEAN CORPUSCULAR HEMOGLOBIN 29 pg (25-34); MEAN CORPUSCULAR HGB CONC 34 g/dL (32-36); MEAN CORPUSCULAR VOLUME 86 fL (80-99); MEAN PLATELET VOLUME 10.7 fL (9.0-12.2); MONOCYTES # (AUTO) 0.5 10^3/uL (0.0-1.0); MONOCYTES % (AUTO) 7 % (0-12); NEUTROPHILS # (AUTO) 3.6 10^3/uL (1.8-7.8); NEUTROPHILS % (AUTO) 52 % (42-75); PLATELET COUNT 212 10^3/uL (130-400); WHITE BLOOD COUNT 6.9 10^3/uL (4.3-11.0)
--- NOTE | 2021-12-21 21:28 | ED Abdominal Pain ---
General Chief Complaint: - Reproductive Stated Complaint: ABD HERNIA PAIN Source of Information: Patient History of Present Illness Date Seen by Provider: Dec 21, 2021 Time Seen by Provider: 21:07 Initial Comments PT ARRIVES VIA POV FROM HOME C/O PAINFUL LEFT HERNIA X 2 WEEKS NO INJURY OR UNUSUALLY HEAVY LIFTING OR UNUSUAL ACTIVITY--PT DOES WORK [employer] AND IS SELF-EMPLOYED NO HISTORY OF SIMILAR NO PRIOR ABDOMINAL SURGERIES NO NAUSEA/VOMITING/DIARRHEA/CONSTIPATION--NORMAL BM TODAY NO URINARY SYMPTOMS NO FEVER HAS NOT TAKEN ANYTHING FOR PAIN PT IS NOT COVID OR FLU VACCINATED. NO FEVER OR RECENT ILLNESS OR KNOWN SICK CONTACTS. PCP: NONE Allergies and Home Medications Allergies Coded Allergies: No Known Drug Allergies (Unverified , 11/24/17) Patient Home Medication List Home Medication List Reviewed: Yes Amoxicillin (Amoxicillin) 500 Mg Tablet, 1,000 MG PO BID Prescribed by: REBEKA BARCENAS on 11/24/172005 Cephalexin Monohydrate (Cephalexin) 500 Mg Capsule, 1 EACH PO BID Prescribed by: XIN PARK on 08/30/141829 Ciprofloxacin HCl (Cipro) 500 Mg Tablet, 500 MG PO BID Prescribed by: XIN PARK on 08/30/141829 Hydrocodone Bit/Acetaminophen ([place] 5-325 Tablet) 1 Each Tablet, 1 EA PO Q6H PRN for MILD PAIN Prescribed by: XIN PARK on 08/30/141829 Hydrocodone Bit/Acetaminophen (Lortab 5 Mg Tablet) 1 Each Tablet, 1 EACH PO Q4H PRN for PAIN Prescribed by: LUIS FRANCIS on 03/13/151716 Ketorolac Tromethamine (Ketorolac Tromethamine) 10 Mg Tablet, 10 MG PO Q6H Prescribed by: LOLI BAUTISTA on 12/21/212202 Naproxen (Naprosyn) 500 Mg Tablet, 500 MG PO Q12H Prescribed by: LUIS FRANCIS on 04/04/15 150 Prednisone (Prednisone) 20 Mg Tab, 40 MG PO DAILY Prescribed by: LUIS FRANCIS on 04/04/15 150 Sulfamethoxazole/Trimethoprim (Bactrim Ds Tablet) 1 Each Tablet, 1 EACH PO BID Prescribed by: LUIS FRANCIS on 03/13/151716 Tramadol HCl (Tramadol HCl) 50 Mg Tablet, 50 MG PO Q4H PRN for PAIN Prescribed by: LUIS FRANCIS on 04/04/15 1509 Review of Systems Review of Systems Constitutional: no symptoms reported EENTM: No Symptoms Reported Respiratory: No Symptoms Reported Cardiovascular: No Symptoms Reported Gastrointestinal: See HPI, Abdominal Pain Genitourinary: No Symptoms Reported Musculoskeletal: no symptoms reported Skin: no symptoms reported Psychiatric/Neurological: No Symptoms Reported Endocrine: No Symptoms Reported Past Avslvxi-Gnekhi-Hcstui Hx Patient Social History Tobacco Use?: Yes (1 PPD) Tobacco type used: Cigarettes Smoking Status: Current Everyday Smoker Use of E-Cig and/or Vaping dev: No Substance use?: No Alcohol Use?: No Pt feels they are or have been: No Immunizations Up To Date Tetanus Booster (TDap): Less than 5yrs Influenza Vaccine Up-to-Date: No; Not Current Past Medical History Surgeries: Yes Ear Surgery, Orthopedic Respiratory: No Cardiac: No Neurological: No Genitourinary: No Gastrointestinal: No Musculoskeletal: Yes Scoliosis, Chronic Back Pain Endocrine: No HEENT: No Cancer: No Psychosocial: No Integumentary: No Blood Disorders: No Family Medical History No Pertinent Family Hx Physical Exam Vital Signs Vital Signs - First Documented 12/21/21 21:05 Temp 36.4 Pulse 63 Resp 16 B/P (MAP) 133/94 (107) Pulse Ox 97 O2 Delivery Room Air Capillary Refill : Height/Weight/BMI Height: 5'6" Weight: 170lbs. oz. 77.055732qi; 27.44 BMI Method:Stated General Appearance: WD/WN, no apparent distress, thin, other (WALKS UPRIGHT AND MOVES WITHOUT DIFFICULTY; REEKS OF CIGARETTES) Respiratory: normal breath sounds, no respiratory distress, no accessory muscle use Cardiovascular: regular rate, rhythm, no murmur Gastrointestinal: normal bowel sounds, soft, hernia (LARGE LEFT INGUINAL HERNIA, REDUCIBLE. 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, no motor/sensory deficits, alert, normal mood/affect, oriented x 3 Skin: normal color, warm/dry Procedures/Interventions Suture Size: 3-0 Progress/Results/Core Measures Results/Orders Lab Results Laboratory Tests Test 12/21/21 21:18 Range/Units White Blood Count 6.9 4.3-11.0 10^3/uL Red Blood Count 4.72 4.30-5.52 10^6/uL Hemoglobin 13.8 13.3-17.7 g/dL Hematocrit 41 40-54 % Mean Corpuscular Volume 86 80-99 fL Mean Corpuscular Hemoglobin 29 25-34 pg Mean Corpuscular Hemoglobin Concent 34 32-36 g/dL Red Cell Distribution Width 14.0 10.0-14.5 % Platelet Count 212 130-400 10^3/uL Mean Platelet Volume 10.7 9.0-12.2 fL Immature Granulocyte % (Auto) 0 % Neutrophils (%) (Auto) 52 42-75 % Lymphocytes (%) (Auto) 34 12-44 % Monocytes (%) (Auto) 7 0-12 % Eosinophils (%) (Auto) 6 0-10 % Basophils (%) (Auto) 2 0-10 % Neutrophils # (Auto) 3.6 1.8-7.8 10^3/uL Lymphocytes # (Auto) 2.3 1.0-4.0 10^3/uL Monocytes # (Auto) 0.5 0.0-1.0 10^3/uL Eosinophils # (Auto) 0.4 H 0.0-0.3 10^3/uL Basophils # (Auto) 0.1 0.0-0.1 10^3/uL Immature Granulocyte # (Auto) 0.0 0.0-0.1 10^3/uL Sodium Level 141 135-145 MMOL/L Potassium Level 3.7 3.6-5.0 MMOL/L Chloride Level 108 H 98-107 MMOL/L Carbon Dioxide Level 24 21-32 MMOL/L Anion Gap 9 5-14 MMOL/L Blood Urea Nitrogen 13 7-18 MG/DL Creatinine 0.99 0.60-1.30 MG/DL Estimat Glomerular Filtration Rate 88 BUN/Creatinine Ratio 13 Glucose Level 85 70-105 MG/DL Calcium Level 8.5 8.5-10.1 MG/DL Corrected Calcium 8.7 8.5-10.1 MG/DL Total Bilirubin 0.2 0.1-1.0 MG/DL Aspartate Amino Transf (AST/SGOT) 18 5-34 U/L Alanine Aminotransferase (ALT/SGPT) 22 0-55 U/L Alkaline Phosphatase 67 40-136 U/L Total Protein 5.8 L 6.4-8.2 GM/DL Albumin 3.7 3.2-4.5 GM/DL My Orders Orders - LOLI BAUTISTA DO Ed Iv/Invasive Line Start (12/21/21 21:09) Ct Abdomen/Pelvis W (12/21/21 21:09) Cbc With Automated Diff (12/21/21 21:09) Comprehensive Metabolic Panel (12/21/21 21:) Ua Culture If Indicated (12/21/21 21:09) Iohexol Injection (Omnipaque 350 Mg/Ml 1 (12/21/21 21:30) Received Contrast (Hold Metformin- Contr (12/21/21 21:30) Ns (Ivpb) (Sodium Chloride 0.9% Ivpb Bag (12/21/21 21:30) Ketorolac Injection (Toradol Injection) (12/21/21 22:15) Medications Given in ED Current Medications Medications Dose Ordered Sig/Lior Route Start Time Stop Time Status Last Admin Dose Admin Iohexol 100 ml ONCE ONCE IV 12/21/21 21:30 12/21/21 21:38 DC 12/21/21 21:31 100 ML Sodium Chloride 100 ml ONCE ONCE IV 12/21/21 21:30 12/21/21 21:38 DC 12/21/21 21:32 80 ML Vital Signs/I&O 12/21/21 21:05 Temp 36.4 Pulse 63 Resp 16 B/P (MAP) 133/94 (107) Pulse Ox 97 O2 Delivery Room Air Diagnostic Imaging Comments CT ABDOMEN/PELVIS--PER RADIOLOGIST REPORT AT 2154 FINDINGS: The heart is unremarkable. The included lung bases are clear.. Scattered small cysts are seen in the liver. No enhancing hepatic lesions. The spleen, pancreas, adrenal glands, and kidneys have a normal appearance. There is no pathologically enlarged mesenteric or retroperitoneal adenopathy. The bowel loops are nondilated. The appendix is visualized in the right lower quadrant and has a normal appearance. There is no free fluid or free air. No acute osseous abnormalities. There is left convexity curvature of the lumbar spine. Grade 1 anterolisthesis of L4 on L5 is noted. Ureters and bladder are grossly normal. Small fat-containing left inguinal hernia is seen. Mild inflammatory changes are associated with this hernia. There is no free air, loculated collection, or adenopathy in the pelvis. IMPRESSION: 1. Small fat-containing left inguinal hernia with associated inflammatory changes. No entrapped loops of bowel are seen. Reviewed: Reviewed by Me Departure Communication (Admissions) 0617--SPOKE WITH DR. SHORE, WILL SEE PT IN OFFICE FOR FOLLOW UP Impression Primary Impression: Left inguinal hernia Disposition: 01 HOME, SELF-CARE Condition: Stable Departure-Patient Inst. Decision time for Depature: 22:00 Referrals: FABRICIO SHORE DO NO,LOCAL PHYSICIAN (PCP) Primary Care Physician Patient Instructions: Inguinal and Femoral (Groin) Hernias Add. Discharge Instructions: NO LIFTING OVER 10 LBS AVOID STRAINING YOUR ABDOMINAL MUSCLES FOLLOW UP WITH DR. SHORE THIS WEEK FOR FURTHER CARE--CALL IN THE MORNING TO SCHEDULE APPOINTMENT All discharge instructions reviewed with patient and/or family. Voiced understanding. Scripts Ketorolac Tromethamine (Ketorolac Tromethamine) 10 Mg Tablet 10 MG PO Q6H for Pain, #15 TAB Prov: LOLI BAUTISTA DO 12/21/21 LOLI BAUTISTA DO Dec 21, 2021 21:28
[2021-12-21] MEDS ORDERED: IOHEXOL 350 MG/ML 100 ML (OMNIPAQUE 350) VIAL IV ONE (21:30)
[2021-12-21] MEDS ORDERED: NS 100 ML (IVPB) BAG IV ONE (21:30)
[2021-12-21] MEDS ORDERED: HOLD METFORMIN - RECEIVED CONTRAST 20 ML VIAL IV SCH (21:30)
[2021-12-21 21:36] LABS: ALBUMIN 3.7 GM/DL (3.2-4.5); POTASSIUM 3.7 MMOL/L (3.6-5.0)
[2021-12-21 21:38] LABS: CALCIUM 8.5 MG/DL (8.5-10.1)
[2021-12-21 21:39] LABS: TOTAL PROTEIN 5.8 GM/DL (6.4-8.2)
[2021-12-21 21:41] LABS: BILIRUBIN,TOTAL 0.2 MG/DL (0.1-1.0)
[2021-12-21 21:42] LABS: CREATININE SERUM 0.99 MG/DL (0.60-1.30)
--- NOTE | 2021-12-21 21:51 | Diagnostic Imaging Report ---
EXAMINATION: CT abdomen and pelvis with intravenous contrast. TECHNIQUE: Multiple contiguous axial images were obtained through the abdomen and pelvis after the uneventful administration of intravenous contrast. All CT scans use one or more of the following dose optimizing techniques: automated exposure control, MA and/or KvP adjustment based on patient size and exam type or iterative reconstruction. HISTORY: Left-sided inguinal pain. COMPARISON: None available. FINDINGS: The heart is unremarkable. The included lung bases are clear.. Scattered small cysts are seen in the liver. No enhancing hepatic lesions. The spleen, pancreas, adrenal glands, and kidneys have a normal appearance. There is no pathologically enlarged mesenteric or retroperitoneal adenopathy. The bowel loops are nondilated. The appendix is visualized in the right lower quadrant and has a normal appearance. There is no free fluid or free air. No acute osseous abnormalities. There is left convexity curvature of the lumbar spine. Grade 1 anterolisthesis of L4 on L5 is noted. Ureters and bladder are grossly normal. Small fat-containing left inguinal hernia is seen. Mild inflammatory changes are associated with this hernia. There is no free air, loculated collection, or adenopathy in the pelvis. IMPRESSION: 1. Small fat-containing left inguinal hernia with associated inflammatory changes. No entrapped loops of bowel are seen. Dictated by: Dictated on workstation # [id number]
[2021-12-21] MEDS ORDERED: KETO10TA PO (22:03)
[2021-12-21 22:07] VITALS: BP 149/92
[2021-12-21] MEDS ORDERED: KETOROLAC 30 MG/ML VIAL IVP ONE (22:15)
== END 2021-12-21 22:16 | disposition home or self-care (01) ==
LOC: EDUNIT# 20:13 → ER 20:14
DX: K40.90 Unilateral inguinal hernia, without obstruction or gangrene, not specified as recurrent (principal); F17.210 Nicotine dependence, cigarettes, uncomplicated; Z28.310 Unvaccinated for COVID-19
CPT/HCPCS: 36415; 74177; 80053; 85025

== ENCOUNTER 2022-03-04 05:32 | Outpatient (CLI) | payer MEDICARE, MEDICAID ==
[~2022-03-04] VITALS: Ht 165.1 cm; Wt 77.1 kg
[~2022-03-04 05:32] MED LIST changes: +KETO10TA PO
== END 2022-03-05 12:33 ==
LOC: PREOP 05:32
PROVIDERS: ATTEND Surgery
DX: Z01.818 Encounter for other preprocedural examination (principal)

== ENCOUNTER 2022-03-11 06:06 | Day surgery (SDC) | payer MEDICARE, MEDICAID ==
[~2022-03-11] VITALS: Ht 165.1 cm; Wt 77.1 kg
[2022-03-11 06:18] VITALS: BP 127/97
[2022-03-11] MEDS ORDERED: ceFAZolin INJECTION 2,000 MG in NS (IVPB) 50 ML IV ONE (06:30)
[2022-03-11] MEDS ORDERED: LACTATED RINGERS 1,000 ML IV PRN (06:30)
[2022-03-11 06:35] LABS: AMPHETAMINE SCREEN, URINE POSITIVE (NEGATIVE); BARBITURATE SCREEN URINE NEGATIVE (NEGATIVE); BENZODIAZEPINES SCREEN URINE POSITIVE (NEGATIVE); CANNABINOID SCREEN, URINE POSITIVE (NEGATIVE); COCAINE SCREEN URINE NEGATIVE (NEGATIVE); METHADONE STAT NEGATIVE (NEGATIVE); OPIATE SCREEN URINE NEGATIVE (NEGATIVE); OXYCODONE STAT NEGATIVE (NEGATIVE); PROPOXYPHENE STAT NEGATIVE (NEGATIVE); TRICYCLIC ANTIDEPRESSANTS SCRE NEGATIVE (NEGATIVE)
[2022-03-11] MEDS ORDERED: BUP/EPI 0.5% 1:200,000 (MARCAINE) 10ML VIAL IJ ONE (06:53)
== END 2022-03-11 08:15 | disposition home or self-care (01) ==
LOC: SDC 06:06
PROVIDERS: ATTEND Surgery
DX: K40.90 Unilateral inguinal hernia, without obstruction or gangrene, not specified as recurrent (principal); Z53.09 Procedure and treatment not carried out because of other contraindication; Z28.310 Unvaccinated for COVID-19
CPT/HCPCS: 80306; 87081

== ENCOUNTER → 2022-04-15 | Outpatient (CLI) | payer MEDICARE, MEDICAID | END | disposition home or self-care (01) | LOC: PREOP 05:32 | PROVIDERS: ATTEND Surgery | DX: Z01.818 Encounter for other preprocedural examination (principal) ==

== ENCOUNTER 2022-04-28 05:31 | Outpatient (CLI) | payer MEDICARE, MEDICAID ==
[~2022-04-28] VITALS: Ht 165.1 cm; Wt 77.1 kg
== END 2022-04-28 16:12 | disposition home or self-care (01) ==
LOC: PREOP 05:31
PROVIDERS: ATTEND Surgery
DX: Z01.818 Encounter for other preprocedural examination (principal)

== ENCOUNTER 2022-06-03 06:56 | Day surgery (SDC) | payer MEDICARE, MEDICAID ==
[~2022-06-03] VITALS: Ht 165 cm; Wt 77.1 kg
[2022-06-03] VITALS (10 sets, daily range): BP systolic 89–144; BP diastolic 56–89
[2022-06-03] MEDS ORDERED: ceFAZolin INJECTION 2,000 MG in NS (IVPB) 50 ML IV ONE (07:15)
[2022-06-03] MEDS ORDERED: LACTATED RINGERS 1,000 ML IV PRN (07:15)
[2022-06-03 07:20] LABS: AMPHETAMINE SCREEN, URINE NEGATIVE (NEGATIVE); BARBITURATE SCREEN URINE NEGATIVE (NEGATIVE); BENZODIAZEPINES SCREEN URINE NEGATIVE (NEGATIVE); CANNABINOID SCREEN, URINE POSITIVE (NEGATIVE); COCAINE SCREEN URINE NEGATIVE (NEGATIVE); METHADONE STAT NEGATIVE (NEGATIVE); OPIATE SCREEN URINE NEGATIVE (NEGATIVE); OXYCODONE STAT NEGATIVE (NEGATIVE); PROPOXYPHENE STAT NEGATIVE (NEGATIVE); TRICYCLIC ANTIDEPRESSANTS SCRE NEGATIVE (NEGATIVE)
[2022-06-03] MEDS ORDERED: LIDOCAINE/EPI 1%-1:100,000 (XYLOCAINE) 30ML ONE (07:47)
[2022-06-03] MEDS: LACTATED RINGERS 1,000 ML IV PRN ×3 (07:50→10:00)
[2022-06-03] MEDS ORDERED: ONDANSETRON 4 MG/2 ML (SDV) Z0FRAN ONE (07:50)
[2022-06-03] MEDS ORDERED: ROCURONIUM 10 MG/ML 5 ML SYRINGE IV ONE ×2 (07:50→09:31)
[2022-06-03] MEDS ORDERED: LIDOCAINE PF 2% 5 ML (XYLOCAINE) VIAL ONE (07:50)
[2022-06-03] MEDS ORDERED: fentaNYL INJ 100 MCG/2 ML AMP ONE (07:50)
[2022-06-03] MEDS ORDERED: proPOfol 200 MG/20 ML (DIPRIVAN) VIAL IV ONE (07:50)
[2022-06-03] MEDS ORDERED: MIDAZOLAM 2 MG/2 ML (VERSED) VIAL ONE (07:51)
[2022-06-03] MEDS ORDERED: PHENYLEPHRINE 100 MCG/ML 10 ML (ANESTHESIA) SYR ONE (08:57)
[2022-06-03] MEDS ORDERED: LIDOCAINE/EPI 1%-1:100,000 (XYLOCAINE) 30ML INJ ONE (09:17)
[2022-06-03] MEDS ORDERED: GLYCOPYRROLATE 0.2 MG/ML (ROBINUL) 2 ML VIAL ONE (11:13)
[2022-06-03] MEDS ORDERED: NEOSTIGMINE (BLOXIVERZ ) 1 MG/1ML 10 ML VIAL ONE (11:13)
[2022-06-03] MEDS ORDERED: SEVOFLURANE (ULTANE) 15 ML INHAL SOLN ONE (11:14)
[2022-06-03] MEDS ORDERED: HYDROmorphone 2 MG/ML VIAL (DILAUDID) ONE (11:24)
[2022-06-03] MEDS ORDERED: ACHD5005 PO (11:27)
[2022-06-03] MEDS ORDERED: DOCU-143 PO ×2 (11:27→13:22)
--- NOTE | 2022-06-03 11:28 | Discharge Inst-Simple/Standard ---
Discharge Inst-Standard Discharge Medications New, Converted or Re-Newed RX: Transmitted to Pharmacy Patient Instructions/Follow Up Plan of Care/Instructions/FU: 2 weeks Gisele Activity as Tolerated: No Discharge Diet: Regular Diet Other Inst to Patient Follow up Appt: Make appointment for 2 week. Instructions: No lifting greater than 10 pounds. No strenuous activity. May shower in 24 hours, no tub bath or soaking. Use incentive spirometer at home as directed. No Smoking Skin/Wound Care: You have special glue over your incision that will fall off on it's own. Symptoms to Report: Appetite Changes, Extremity Discoloration, Numbness/Tingling, Swelling Increased, Bleeding Excessive, Eyesight Changes, Pain Increased, Urine Color Change, Constipation(Persistent), Fever over 101 degree F, Pain/Pressure in chest, Urinating Difficulty, Cough Up/Vomit Blood, Heart Beat Irreg/Pounding, Pain/Pressure in jaw, Vaginal Bleeding Increase, Cramps in feet or legs, Lightheadedness, Pain/Pressure in shoulder, Diarrhea(Persistent), Memory Changes Suddenly, Questions/Concerns, Weight gain consecutive days, Dizziness/Fainting, Nausea/Vomiting, Shortness of Breath, Weight gain over 2 pounds If questions or concerns contact your physician Or seek help at emergency department. FABRICIO SHORE DO Jun 03, 2022 11:27
--- NOTE | 2022-06-03 11:30 | Progress Note-Post Operative ---
Post-Operative Progess Note Surgeon (s)/Emery Grinder (s) Surgeon FABRICIO SHORE DO Emery Grinder: Dr. Kumar to assist in retraction dissection and closure Pre-Operative Diagnosis left inguinal hernia, umbilical hernia Post-Operative Diagnosis left indirect inguinal hernia, incarcerated umbilical hernia Procedure & Operative Findings Date of Procedure 06/03/22 Procedure Performed/Findings robotic left inguinal hernia repair, laparopscopic incarcerated umbilical hernia repair Anesthesia Type general Estimated Blood Loss Estimated blood loss (mL): minimal Specimens/Packing Specimens Removed na FABRICIO SHORE DO Jun 03, 2022 11:30
[2022-06-03] MEDS ORDERED: KETOROLAC 30 MG/ML VIAL ONE (11:40)
[2022-06-03] MEDS ORDERED: HYDROmorphone 2 MG/ML VIAL (DILAUDID) IV ONE (11:45)
[2022-06-03] MEDS ORDERED: PROMETHAZINE INJ 25 MG/ML (PHENERGAN) AMP IVP ONE (11:45)
[2022-06-03] MEDS ORDERED: KETOROLAC 30 MG/ML VIAL IVP ONE (11:45)
[2022-06-03] MEDS ORDERED: MEPERIDINE (DEMEROL) INJ 50 MG/ML IVP ONE (11:45)
[2022-06-03] MEDS ORDERED: morphine INJ 10 MG/ML 1ML (SYR OR VIAL) IVP ONE (11:45)
[2022-06-03] MEDS ORDERED: ONDANSETRON 4 MG/2 ML (SDV) Z0FRAN IVP PRN (11:45)
[2022-06-03] MEDS ORDERED: morphine INJ 10 MG/ML 1ML (SYR OR VIAL) ONE (11:52)
[2022-06-03] MEDS ORDERED: HYDROcodone/APAP 5 MG/325 MG (LORTAB) TAB ONE (12:33)
[2022-06-03] MEDS ORDERED: HYDROcodone/APAP 5 MG/325 MG (LORTAB) TAB PO ONE (12:45)
[2022-06-03] MEDS ORDERED: OXYC1TAB87 PO (13:20)
--- NOTE | 2022-06-03 13:55 | Anesthesia-General Post-Op ---
General Patient Condition Mental Status/LOC: Same as Preop Cardiovascular: Satisfactory Nausea/Vomiting: Absent Respiratory: Satisfactory Pain: Controlled Complications: Absent Post Op Complications Complications None Follow Up Care/Instructions Patient Instructions None needed. Anesthesia/Patient Condition Patient Condition Patient is doing well, no complaints, stable vital signs, no apparent adverse anesthesia problems. No complications reported per nursing. CLAIRE JENNINGS CRNA Jun 03, 2022 13:55
--- NOTE | 2022-06-04 00:21 | OPERATIVE REPORT ---
DATE OF SERVICE: 06/03/2022 PREOPERATIVE DIAGNOSIS: Left inguinal hernia and umbilical hernia. POSTOPERATIVE DIAGNOSIS: Left indirect inguinal hernia and incarcerated umbilical hernia. SURGEON: Fabricio Jaquez DO COMBATANT DIVER OFFICER: Kel Kumar DO, assisted in retraction, dissection, and closure. ANESTHESIA: General. ESTIMATED BLOOD LOSS: Minimal. COMPLICATIONS: None. INDICATIONS The patient is a 57-year-old male with a large left inguinal hernia and umbilical hernia, which he wishes to have repair. He understands the risks and benefits of the procedure and wishes to proceed. Consent was signed and on the chart. DESCRIPTION OF PROCEDURE: The patient was taken to the operating suite where he was prepped and draped in sterile fashion. Timeout was performed. Lidocaine was used to infiltrate the skin just above the umbilicus. An incision was made with 11 blade scalpel and carried down through the subcutaneous tissues with Bovie cautery. The fascia was then incised and the abdomen was then bluntly entered. A 0 Vicryl was placed in [id number] fashion for closure at the end of the case. A galvez trocar was inserted and pneumoperitoneum was achieved. The large left indirect inguinal hernia was visualized. I then placed two 8 mm ports about 10 cm on either side of the midline using lidocaine previous and then 11 blade for a stab incision. The patient was then placed in Trendelenburg position after the trocars were placed. The robot was then docked with a fenestrated bipolar and scissors were placed under direct visualization. The right side had early signs of a possible inguinal hernia. The left side had a large indirect inguinal hernia. I came across the peritoneum approximately 2 cm away from the hernia defect going across laterally. Then continued to dissect the visceral peritoneum away and continued dissection down toward the pubic tubercle was then able to be visualized carefully pushing the peritoneum away. We went 2 cm posterior and continued to be approximately 2 cm posterior to Ralf's ligament and then the vas deferens, spermatic vessels and the iliac vein. Continued to dissect the hernia sac out, which was extremely large. Continued to visualize the cord and cord structures and was able to get the sac free and created a pocket laterally in the same fashion medially. We placed an extra-large Bard 3DMax mesh, which covered the hernia defect and the rest of the area of dissection. It was above the peritoneum. to the pubic tubercle with 3-0 Vicryl suture. Also secured it laterally and superiorly with a 3-0 Vicryl suture. I then started laterally using a 2-0 V-Loc barbed suture for a running stitch to close the peritoneum. At this point, we undocked the robot and continued to fix the umbilical hernia and incarcerated fat, which we were able to reduce out. To help with dissection, a 5 mm trocar was placed in the right lower quadrant under direct visualization of the scope. An echo Ventralight mesh was inserted through the 12 mm trocar site. At this point, the trocar was removed and the previously placed 0 Vicryl suture was tied off. The balloon was insufflated and the mesh was brought to the abdominal wall having adequate coverage. The mesh was then secured circumferentially with SecureStrap tack. The balloon was removed. An inner crown was created as well. The abdomen was then desufflated. The trocars were removed. The subcutaneous tissues were then reapproximated using 4-0 Monocryl. The abdomen was then washed and dried. Skin Affix was placed over the incisions. The patient tolerated the procedure well without complications, taken to recovery room in stable condition. Job ID: [id number] DocumentID: [id number] Dictated Date: 06/03/2022 21:39:20 Labor Relations Or Personnel Negotiator Date: 06/04/2022 00:19:00 Dictated By: FABRICIO JAQUEZ DO
[2022-06-04] MEDS ORDERED: TRAM50TA3 PO (16:19)
== END 2022-06-03 13:50 | disposition home or self-care (01) ==
LOC: SDC 06:56
PROVIDERS: ATTEND Surgery
DX: K40.90 Unilateral inguinal hernia, without obstruction or gangrene, not specified as recurrent (principal); K42.0 Umbilical hernia with obstruction, without gangrene; F15.10 Other stimulant abuse, uncomplicated; Z87.891 Personal history of nicotine dependence; Z28.310 Unvaccinated for COVID-19
CPT/HCPCS: 49650; 49653; 80306; 87081; 94664; C1781 ×2